=== PATIENT | female | born 1990 | race Caucasian/White ===

== ENCOUNTER 2019-03-04 05:35 | Inpatient (IN) ==
--- NOTE | 2019-02-27 07:59 | History and Physical Report ---
DATE OF ADMISSION: 03/04/2019 REASON FOR ADMISSION: Elective repeat section. HISTORY OF PRESENT ILLNESS: The patient is a 28-year-old female presenting at term for an elective repeat section. She had a prior in 2016 for a secondary arrest of dilation. She is not interested in a trial of labor after and is scheduled for an elective repeat section. PAST MEDICAL HISTORY: Positive for asthma. PAST SURGICAL HISTORY: Positive for laparoscopic appendectomy in 2001, breast augmentation and section. SOCIAL HISTORY: Denies smoking, alcohol or drug use. FAMILY HISTORY: Noncontributory. REVIEW OF SYSTEMS: Negative. PHYSICAL EXAMINATION: VITAL SIGNS: Blood pressure is 102/68. Weight is 190 pounds. Height is 5 feet 7 inches. HEENT: Within normal limits. LUNGS: Clear to auscultation. COR: Regular rate and rhythm. ABDOMEN: Soft and gravid. heart tone category 1. EXTREMITIES: Within normal limits. NEUROLOGIC: Intact. Group B strep is negative. ASSESSMENT: Term . PLAN: Elective repeat section.
[2019-03-04] MEDS ORDERED: LACTATED RINGER'S 1,000 ML IV SCH ×3 (05:45→09:00)
[2019-03-04] MEDS ORDERED: CEFAZOLIN 2000MG 2,000 MG/15 ML SYR IV SCH (06:00)
[2019-03-04] MEDS ORDERED: CITRIC ACID/SODIUM CITRATE 15 ML UDC PO SCH ×2 (06:00)
[2019-03-04 06:44] LABS: Hematocrit (blood only) 31.9 % (37-47); Hemoglobin 10.4 g/dL (12.0-16.0); Mean Corpuscular Hgb Conc 32.6 g/dL (32-36); Mean Corpuscular Volume 86.9 fL (80-100); Platelet Count 173 K/uL (130-400); RDW Coefficient of Variation 14.6 % (11.5-14.5); RDW Standard Deviation 45.5 fL (36.4-46.3); Red Blood Count 3.67 M/uL (4.2-5.4); White Blood Count 8.13 K/uL (4.8-10.8)
[2019-03-04 06:45] LABS: Basophils # (auto) 0.01 K/uL (0-0.2); Basophils % (auto) 0.1 %; Eosinophils # (auto) 0.09 K/uL (0-0.5); Eosinophils % (auto) 1.1 %; Immature Granulocytes # (auto) 0.03 K/uL (0.00-0.02); Immature Granulocytes % (auto) 0.4 %; Lymphocytes # (auto) 1.72 K/uL (1.2-3.4); Lymphocytes % (auto) 21.2 %; Monocytes # (auto) 0.77 K/uL (0.11-0.59); Monocytes % (auto) 9.5 %; Neutrophils # (auto) 5.51 K/uL (1.4-6.5); Neutrophils % (auto) 67.7 %; Platelet Estimate Normal (Normal); RBC Morphology Unremarkable
[2019-03-04] MEDS ORDERED: MoRPHine SULFATE PF 1 MG/ML 10 ML AMP/VIAL ONE (07:16)
--- NOTE | 2019-03-04 07:20 | History & Physical Bridge Note ---
Date of Service March 04, 2019 History & Physical Bridge Note I have examined the patient, reviewed the History & Physical and in the interval since the performance of the History & Physical I have noted the following changes of clinical significance: no changes noted
--- NOTE | 2019-03-04 07:21 | Anesthesiology Consultation ---
Date of Service March 04, 2019 Assessment & Plan (1) Encounter for pre-operative examination: Chart Review Chart Review: Acceptable Risk for Surgery History Surgery Operation Date: 03/04/19 07:30 Proposed Procedures p Section in LD - Renan Hernandez MD Height/Weight Height: 5 ft 7 in Weight: 83.461 kg Allergies Allergy/AdvReac Type Severity Reaction Status Date / Time No Known Allergies Allergy Verified 03/04/19 06:01 Medications Home Medications Medication Instructions Recorded Confirmed Last Taken PNV cmb#95-ferrous fumarate-FA 1 tab PO DAILY 02/19/19 02/19/19 02/19/19 [] NPO Date Last Intake of Fluids: 03/03/19 Time Last Intake of Fluids: 21:00 Date Last Intake of Solids: 03/03/19 Time Last Intake of Solids: 18:30 Past Medical History Medical History Chlamydia History of asthma CHILDHOOD History of delivery of macrosomal infant PRIOR C/SECTION D/T BABY 10 LBS Seasonal allergies Past Surgical History Surgical History History of breast augmentation History of section History of hernia surgery UNDER 1 YR OF AGE Social History Smoking Status: Never smoker Do You Dip or Chew Tobacco: No Hx Alcohol Use: No Hx Substance Use: No substance use type: does not use Physical Exam Vital Signs Last Vital Signs Temp 37 C 03/04/19 07:12 Pulse 77 03/04/19 07:12 Resp 20 03/04/19 07:12 BP 115/76 03/04/19 07:12 Testing Laboratory Results 03/04/19 05:50
[2019-03-04] MEDS ORDERED: NALBUPHINE HCL INJ 10 MG/ML AMP IV PRN (07:27)
[2019-03-04] MEDS ORDERED: ONDANSETRON INJ 2 MG/ML 2 ML VIAL IV PRN (07:27)
[2019-03-04] MEDS ORDERED: ePHEDrine sulfate 50 MG/ML AMP IV PRN (07:27)
[2019-03-04] MEDS ORDERED: KETOROLAC 30 MG/ML VIAL IV PRN (07:27)
[2019-03-04] MEDS ORDERED: NALOXONE HCL 0.08 MG in SYRINGE 1.8 ML IV PRN (07:27)
[2019-03-04] MEDS ORDERED: NALOXONE HCL 1 MG in SODIUM CHLORIDE 0.9% 1000ML 1,000 ML IV PRN (07:27)
[2019-03-04] MEDS ORDERED: LACTATED RINGER'S 500 ML IV PRN (07:27)
[2019-03-04] MEDS ORDERED: NALOXONE HCL 0.4 MG/1 ML VIAL/CARP IV PRN (07:27)
[2019-03-04] MEDS ORDERED: DiphenhydrAMINE HCL 50 MG/ML VIAL IV PRN (07:27)
[2019-03-04] MEDS ORDERED: MoRPHine SULFATE PF 1 MG/ML 10 ML AMP/VIAL INT SPINAL ONE (07:27)
[2019-03-04] MEDS ORDERED: PROMETHAZINE HCL 12.5 MG in SODIUM CHLORIDE 0.9% 50 ML IV PRN (07:27)
[2019-03-04] MEDS ORDERED: MEPERIDINE HCL 25 MG/ML CARP IV PRN (07:27)
[2019-03-04] MEDS ORDERED: DC INTRASPINAL MORPHINE SCH (07:30)
[2019-03-04] MEDS ORDERED: SODIUM CHLORIDE 0.9% 1000ML 1,000 ML IV SCH (07:30)
[2019-03-04] MEDS ORDERED: NO NARCOTICS OR SEDATIVES SCH (07:30)
[2019-03-04] MEDS ORDERED: ONDANSETRON INJ 2 MG/ML 2 ML VIAL ONE (08:10)
[2019-03-04] MEDS ORDERED: ePHEDrine sulfate 50 MG/ML SYR ONE (08:10)
[2019-03-04] MEDS ORDERED: METOCLOPRAMIDE HCL INJ 5 MG/ML 2 ML VIAL ONE (08:10)
[2019-03-04] MEDS ORDERED: SUCCINYLCHOLINE CHLORIDE 20 MG/ML 10 ML VIAL ONE (08:10)
[2019-03-04] MEDS ORDERED: PHENYLEPHRINE 100MCG/ML 5ML SYR ONE (08:10)
[2019-03-04] MEDS ORDERED: LIDOCAINE HCL 2% MPF (LOCAL) 5 ML VIAL INFIL ONE (08:10)
[2019-03-04] MEDS ORDERED: OXYTOCIN 10 UNITS/ML VIAL ONE ×3 (08:10→08:29)
[2019-03-04] MEDS ORDERED: PROPOFOL IV EMULSION 10 MG/ML 20 ML VIAL IV ONE (08:10)
--- NOTE | 2019-03-04 08:45 | Post Operative Brief Note ---
Immediate Post Op Note v1 Date of Surgery March 04, 2019 Pre & Post Diagnosis Operation Date: 03/04/19 07:30 Pre-Op Diagnosis: intraruterine at term elective repeat section Post-Op Diagnosis: section delivery for live female at 0805 Procedure Operation Date: 03/04/19 07:30 Actual Procedures p Section in Labor and Delivery for live female at 0805 - Renan Hernandez MD Surgeon Renan Hernandez MD Direct Entry Midwife Cece Estimated Blood Loss 700 Findings Consistent with Post-Op Diagnosis Live female Apgars 9/9 weight pending Fluids 3000 ml. Specimens Placenta Drains Leach Catheter (placed without difficulty for immediate return of clear yellow urine) Anesthesia Type Spinal Complications none Disposition Accompanied Patient To Recovery: Yes Disposition: L&D Overlapping Procedure I was immediately available: during the entire case. Back up surgeon: used during listed procedure.
[2019-03-04] MEDS ORDERED: MEASLES, MUMPS & RUBELLA VIRUS VIAL SQ ONE (08:52)
[2019-03-04] MEDS ORDERED: DIPHTHERIA/TETANUS/PERTUSSIS 0.5 ML SYR/VIAL IM ONE (08:52)
[2019-03-04] MEDS ORDERED: MAGNESIUM HYDROXIDE SUSP 30 ML UDC PO PRN (08:52)
[2019-03-04] MEDS ORDERED: SUPERCREAM 0.870% 15 GM JAR EXT PRN (08:52)
[2019-03-04] MEDS ORDERED: BENZOCAINE 20% AER SPR 82.5 GM CAN EXT PRN (08:52)
[2019-03-04] MEDS ORDERED: HYDROCORTISONE ACETATE 25 MG SUPP PR PRN (08:52)
[2019-03-04] MEDS ORDERED: SENNA 8.6 MG TAB PO PRN (08:52)
[2019-03-04] MEDS ORDERED: NON-FORMULARY MEDICATION (Pnv Cmb#95-Ferrous Fumarate-Fa [Prenatal] 1 TAB) PO SCH (10:54)
--- NOTE | 2019-03-04 13:36 | Operative Report ---
DATE OF OPERATION: 03/04/2019 PREOPERATIVE DIAGNOSIS: Term elective repeat section. POSTOPERATIVE DIAGNOSIS: Term elective repeat section. PROCEDURE: Repeat section, low segment transverse. SURGEON: Renan Hernandez MD. COSMETIC COUNSELOR: Bibiana Conti MD. ANESTHESIA: Spinal. FINDINGS: A live female, Apgars 9 and 9, weight 8 pounds 14 ounces. COMPLICATIONS: None. TOTAL FLUIDS: 3000 mL of LR. URINE OUTPUT: Pending. ESTIMATED BLOOD LOSS: 700 mL. CLINICAL HISTORY: The patient is a 28-year-old female, para 1-0-0-1, at 39 weeks and 3 days, admitted for an elective repeat section. The patient was given informed consent. Consents were signed. The patient was identified prior to the start of the procedure with a timeout and antibiotics were given preop. DESCRIPTION OF PROCEDURE: Under satisfactory spinal anesthesia, the patient was prepped and draped in usual sterile fashion. A low Pfannenstiel incision through a prior scar was then used, entering into the abdominal cavity in successive layers without difficulty. Upon entering into the abdominal cavity, uterus was noted to be dextrorotated, pickups with teeth and Metzenbaums were then used to develop a bladder flap. A low segment transverse incision over the lower uterine segment was made. The incision was nicked. Amniotic fluid was clear. The incision was widened in the AP diameter. The baby was delivered with the aid of fundal pressure through the scar with a vertex presentation. The cord was doubly clamped and cut after a 1 minute delayed cord clamping. Live female, Apgars 9 and 9, weight 8 pounds 14 ounces. Cord blood was obtained. Placenta was then delivered manually, spontaneously and intact. Uterus was then exteriorized. Ring forceps was then placed on both angles in the inferior margin and another ring was then used to dilate the cervix. Uterus was closed in a double layer closure with 0 Vicryl suture in a continuous interlocking fashion by a second imbricating layer of 0 Vicryl suture. Tubes and ovaries bilaterally were found to be within normal limits. The contents of the pelvic cavity were then irrigated to clear. The uterus was then placed back into the normal anatomical position. The initial sponge, needle and instrument count were found to be correct. The muscle was then reapproximated with 0 Vicryl suture. Fascia was then reapproximated from both ends using 0 Vicryl suture in a continuous fashion. Subcuticular space was irrigated. Bleeders were cauterized. Skin was then reapproximated with 4-0 Monocryl suture. Steri-Strips were then applied. Clear urine was noted from the Leach. Estimated blood loss 700 mL. Total fluids were 3000 mL. Final sponge, needle and instrument counts being correct, the patient was then placed upon a stretcher and taken to recovery room in stable condition. I attest to the content of the Intraoperative Record and any orders documented therein. Any exception s are noted below.
--- NOTE | 2019-03-04 15:34 | Anesthesiology Progress Note ---
Date of Service March 04, 2019 Anesthesia Post Procedure Vital Signs Vital Signs: Temp Pulse Resp BP Pulse Ox Pulse Ox 03/04/19 14:15 36.7 C 76 16 106/66 99 03/04/19 13:15 36.5 C 82 18 111/74 100 03/04/19 13:10 18 100 03/04/19 12:15 36.6 C 84 16 132/87 100 03/04/19 11:45 36.5 C 90 16 119/78 98 100 03/04/19 11:33 123/82 03/04/19 11:32 90 100 03/04/19 11:27 84 100 03/04/19 11:23 61 114/73 03/04/19 11:22 69 100 03/04/19 11:17 84 100 03/04/19 11:13 77 135/91 03/04/19 11:12 82 100 03/04/19 11:07 62 100 03/04/19 11:03 84 110/74 03/04/19 11:02 73 100 03/04/19 10:57 96 H 100 03/04/19 10:53 86 114/79 03/04/19 10:52 78 100 03/04/19 10:47 70 100 03/04/19 10:43 70 117/80 03/04/19 10:42 68 100 03/04/19 10:37 79 100 03/04/19 10:33 78 114/75 03/04/19 10:32 78 100 03/04/19 10:27 73 100 03/04/19 10:23 80 114/75 03/04/19 10:22 75 100 03/04/19 10:17 81 100 03/04/19 10:16 80 116/69 03/04/19 10:14 84 160/99 H 03/04/19 10:12 97 H 100 03/04/19 10:07 74 100 03/04/19 10:03 76 114/71 03/04/19 10:02 82 100 03/04/19 09:57 76 100 03/04/19 09:53 83 108/71 03/04/19 09:52 83 100 03/04/19 09:47 85 100 03/04/19 09:46 36.4 C L 20 03/04/19 09:43 77 129/70 03/04/19 09:42 79 100 07/23/19 09:37 82 99 03/04/19 09:36 20 03/04/19 09:33 88 115/73 03/04/19 09:32 87 100 03/04/19 09:27 82 99 03/04/19 09:26 20 03/04/19 09:23 82 120/75 03/04/19 09:22 83 98 03/04/19 09:18 87 94 03/04/19 09:17 90 94 03/04/19 09:16 20 03/04/19 09:12 85 96 03/04/19 09:11 88 109/71 91 03/04/19 09:07 70 99 03/04/19 09:06 86 20 108/76 03/04/19 09:02 78 100 03/04/19 09:01 84 110/75 03/04/19 08:57 85 99 03/04/19 08:56 36.5 C 20 03/04/19 08:52 89 98 03/04/19 08:47 87 107/62 96 03/04/19 08:46 36.4 C L 16 03/04/19 07:12 37 C 77 20 115/76 03/04/19 06:17 36.5 C 18 03/04/19 05:44 36.5 C 18 03/04/19 05:42 82 117/78 Pain Intensity Lower Abdomen: Pain Intensity: 0 Transfer of Care Handoff Completed per policy Notes Mental Status: alert / awake / arousable Patient Amnestic to Procedure: Yes Nausea / Vomiting: adequately controlled Pain: adequately controlled Airway Patency, RR, SpO2: stable & adequate BP & HR: stable & adequate Hydration State: stable & adequate Neuraxial Anesthesia: was administered and sensory block is resolving Anesthetic Complications: no major complications apparent
[2019-03-04] MEDS: LACTATED RINGER'S 1,000 ML IV SCH ×2 (15:57→23:19)
[2019-03-04] MEDS: SIMETHICONE 80 MG CHEW PO SCH ×2 (20:25→20:26)
[2019-03-04] MEDS: DOCUSATE SODIUM 100 MG CAP PO SCH (20:26)
[2019-03-05] MEDS ORDERED: DiphenhydrAMINE HCL 50 MG/ML VIAL IV PRN (01:28)
[2019-03-05] MEDS ORDERED: ONDANSETRON INJ 2 MG/ML 2 ML VIAL IV PRN (01:28)
[2019-03-05] MEDS ORDERED: MEPERIDINE HCL 50 MG/ML CARP IV PRN (01:28)
[2019-03-05] MEDS ORDERED: PROMETHAZINE HCL 25 MG in SODIUM CHLORIDE 0.9% 50 ML IV PRN (01:28)
[2019-03-05] MEDS ORDERED: KETOROLAC 30 MG/ML VIAL IV PRN (01:28)
[2019-03-05 06:42] LABS: Mean Corpuscular Hgb Conc 32.9 g/dL (32-36)
[2019-03-05 06:50] LABS: Hematocrit (blood only) 30.7 % (37-47); Hemoglobin 10.1 g/dL (12.0-16.0); Mean Corpuscular Volume 87.5 fL (80-100); RDW Coefficient of Variation 14.8 % (11.5-14.5); RDW Standard Deviation 46.9 fL (36.4-46.3); Red Blood Count 3.51 M/uL (4.2-5.4); White Blood Count 10.53 K/uL (4.8-10.8)
[2019-03-05 07:12] LABS: Platelet Count 152 K/uL (130-400)
[2019-03-05 07:13] LABS: Basophils # (auto) 0.01 K/uL (0-0.2); Basophils % (auto) 0.1 %; Eosinophils # (auto) 0.03 K/uL (0-0.5); Eosinophils % (auto) 0.3 %; Immature Granulocytes # (auto) 0.03 K/uL (0.00-0.02); Immature Granulocytes % (auto) 0.3 %; Lymphocytes # (auto) 0.93 K/uL (1.2-3.4); Monocytes # (auto) 0.95 K/uL (0.11-0.59); Monocytes % (auto) 9.2 %; Neutrophils # (auto) 8.36 K/uL (1.4-6.5); Neutrophils % (auto) 81.1 %
[2019-03-05] MEDS: FERROUS SULFATE 325 MG TAB PO SCH (08:08)
[2019-03-05] MEDS: PRENATAL VITAMIN 1 TAB PO SCH (08:08)
[2019-03-05] MEDS: SIMETHICONE 80 MG CHEW PO SCH ×5 (08:08→19:34)
[2019-03-05] MEDS: DOCUSATE SODIUM 100 MG CAP PO SCH ×2 (08:08→19:34)
--- NOTE | 2019-03-05 09:36 | Anesthesiology Progress Note ---
Date of Service March 05, 2019 Anesthesia Post Procedure Vital Signs Vital Signs: Temp Pulse Pulse Resp BP BP Pulse Ox 03/05/19 09:00 36.8 C 84 16 114/76 100 03/05/19 03:16 36.7 C 64 18 102/65 100 03/05/19 01:00 16 99 03/05/19 00:00 16 100 03/04/19 23:22 36.9 C 70 18 105/68 100 03/04/19 23:00 18 100 03/04/19 22:28 18 98 03/04/19 21:00 18 99 03/04/19 20:00 37.0 C 84 20 105/70 100 03/04/19 19:00 18 99 03/04/19 17:59 18 100 03/04/19 16:40 20 100 03/04/19 15:40 37.0 C 70 20 109/72 99 03/04/19 14:15 36.7 C 76 16 106/66 99 03/04/19 13:15 36.5 C 82 18 111/74 100 03/04/19 13:10 18 100 03/04/19 12:15 36.6 C 84 16 132/87 100 03/04/19 11:45 36.5 C 90 16 119/78 98 03/04/19 11:33 123/82 03/04/19 11:32 90 100 03/04/19 11:27 84 100 03/04/19 11:23 61 114/73 03/04/19 11:22 69 100 03/04/19 11:17 84 100 03/04/19 11:13 77 135/91 03/04/19 11:12 82 100 03/04/19 11:07 62 100 03/04/19 11:03 84 110/74 03/04/19 11:02 73 100 03/04/19 10:57 96 H 100 03/04/19 10:53 86 114/79 03/04/19 10:52 78 100 03/04/19 10:47 70 100 03/04/19 10:43 70 117/80 03/04/19 10:42 68 100 03/04/19 10:37 79 100 03/04/19 10:33 78 114/75 03/04/19 10:32 78 100 03/04/19 10:27 73 100 03/04/19 10:23 80 114/75 03/04/19 10:22 75 100 03/04/19 10:17 81 100 03/04/19 10:16 80 116/69 03/04/19 10:14 84 160/99 H 03/04/19 10:12 97 H 100 03/04/19 10:07 74 100 03/04/19 10:03 76 114/71 03/04/19 10:02 82 100 03/04/19 09:57 76 100 03/04/19 09:53 83 108/71 03/04/19 09:52 83 100 03/04/19 09:47 85 100 03/04/19 09:46 36.4 C L 20 03/04/19 09:43 77 129/70 03/04/19 09:42 79 100 03/04/19 09:37 82 99 Pulse Ox 03/05/19 09:00 03/05/19 03:16 03/05/19 01:00 03/05/19 00:00 03/04/19 23:22 03/04/19 23:00 03/04/19 22:28 03/04/19 21:00 03/04/19 20:00 03/04/19 19:00 03/04/19 17:59 03/04/19 16:40 03/04/19 15:40 03/04/19 14:15 03/04/19 13:15 03/04/19 13:10 03/04/19 12:15 03/04/19 11:45 100 03/04/19 11:33 03/04/19 11:32 03/04/19 11:27 03/04/19 11:23 03/04/19 11:22 03/04/19 11:17 03/04/19 11:13 03/04/19 11:12 03/04/19 11:07 03/04/19 11:03 03/04/19 11:02 03/04/19 10:57 03/04/19 10:53 03/04/19 10:52 03/04/19 10:47 03/04/19 10:43 03/04/19 10:42 03/04/19 10:37 03/04/19 10:33 03/04/19 10:32 03/04/19 10:27 03/04/19 10:23 03/04/19 10:22 03/04/19 10:17 03/04/19 10:16 03/04/19 10:14 03/04/19 10:12 03/04/19 10:07 03/04/19 10:03 03/04/19 10:02 03/04/19 09:57 03/04/19 09:53 03/04/19 09:52 03/04/19 09:47 03/04/19 09:46 03/04/19 09:43 03/04/19 09:42 03/04/19 09:37 Pain Intensity Lower Abdomen: Pain Intensity: 1 Transfer of Care Handoff Completed per policy Notes Mental Status: alert / awake / arousable Patient Amnestic to Procedure: Yes Nausea / Vomiting: adequately controlled Pain: adequately controlled Airway Patency, RR, SpO2: stable & adequate BP & HR: stable & adequate Hydration State: stable & adequate Neuraxial Anesthesia: was administered and sensory block is resolving Anesthetic Complications: no major complications apparent and Pt Satisfied with anesthetic care
--- NOTE | 2019-03-05 09:37 | Obstetrical Progress Note ---
Date of Service March 05, 2019 Physical Exam Physical Exam: abdomen soft nd non tender incision is clean and dry passing flatus no calf tenderness vaginal bleeding scant hgb 10.1 ambulating well Results & Data Vital Signs (Past 12 Hours) Vital Signs Temp Pulse Resp BP Pulse Ox 03/05/19 09:00 36.8 C 84 16 114/76 100 03/05/19 03:16 36.7 C 64 18 102/65 100 03/05/19 01:00 16 99 03/05/19 00:00 16 100 03/04/19 23:22 36.9 C 70 18 105/68 100 03/04/19 23:00 18 100 03/04/19 22:28 18 98
[2019-03-05] MEDS: IBUPROFEN 600 MG TAB PO PRN (12:47)
[2019-03-05] MEDS: OXYCODONE/ACETAMINOPHEN 5mg/325mg TAB PO PRN (12:48)
[2019-03-05] MEDS ORDERED: BISACODYL 5 MG TABEC PO SCH (20:00)
[2019-03-06] MEDS: OXYCODONE/ACETAMINOPHEN 5mg/325mg TAB PO PRN (02:29)
[2019-03-06] MEDS: IBUPROFEN 600 MG TAB PO PRN (02:29)
[2019-03-06 06:40] LABS: Hematocrit (blood only) 30.3 % (37-47); Hemoglobin 9.8 g/dL (12.0-16.0)
[2019-03-06] MEDS: SIMETHICONE 80 MG CHEW PO SCH (08:00)
[2019-03-06] MEDS: FERROUS SULFATE 325 MG TAB PO SCH (08:00)
[2019-03-06] MEDS: PRENATAL VITAMIN 1 TAB PO SCH (08:00)
[2019-03-06] MEDS: DOCUSATE SODIUM 100 MG CAP PO SCH (08:00)
[2019-03-06] MEDS ORDERED: BISACODYL 10 MG SUPP PR PRN (08:52)
--- NOTE | 2019-03-06 10:20 | Obstetrical Progress Note ---
Date of Service March 06, 2019 Subjective Patient is seen and examined. She feels well, no complaints. Likes to be discharged Pain is under control with oral meds. Ambulating without dizziness Voiding without difficulty Tolerating regular diet with out N&V Flatus + BM + Bleeding is minimal No fever/ chills/ CP/ SOB/ N&V/ Leg pain Breast feeding without problems Vital Signs Temp Pulse Pulse Resp BP Pulse Ox 03/06/19 08:05 36.5 C 78 14 112/78 100 03/05/19 23:00 36.9 C 77 16 108/72 99 03/06/19 Range/Units 06:19 Hgb 9.8 L (12.0-16.0) g/dL Hct 30.3 L (37-47) % PE: General: Alert, orientedx3, NAD CVS: S1S2 RRR Lungs; CTAB Abd: soft, NT, ND, BS+, fundus firm, below Umbilicus Incision: Clean, dry, intact Perineum intact, Lochia rubra minimal Ext; NT, no edema AP: 28 yo s/p C Section, pod# 2 VSS Afebrile doing well Continue routine postop care Encourage ambulation, PO intake All questions were answered D/C home , f/u in office Results & Data Vital Signs (Past 12 Hours) Vital Signs Temp Pulse Pulse Resp BP Pulse Ox 03/06/19 08:05 36.5 C 78 14 112/78 100 03/05/19 23:00 36.9 C 77 16 108/72 99
--- NOTE | 2019-03-13 19:09 | Discharge Summary ---
HOSPITAL COURSE AND REASON FOR ADMISSION: The patient is an admission for a in labor and delivery as an elective repeat. She underwent a repeat with spinal anesthesia delivering a live female, Apgars were 9 and 9. Homegoing instructions were given. Hospital course was unremarkable. The patient was discharged to home 03/06/2019 in stable condition. Regular diet on discharge. Percocet for pain and Motrin for pain. Followup in the office will be in 1 week.
== END 2019-03-06 11:50 | disposition home or self-care (01) | DRG 788 ==
LOC: 4S1 05:35 → EDSTATUS 07:30 → MERGE 07:30 → 4S2 12:26

== ENCOUNTER 2020-06-04 06:24 | Inpatient (IN) ==
[2020-06-04] MEDS ORDERED: INFLUENZA VIRUS QUAD VACCINE 0.5 ML SYR IM ONE (08:47)
[2020-06-04] MEDS ORDERED: INFLUENZA ADMINISTRATION CHARGE ONE (08:47)
[2020-06-04] MEDS ORDERED: OXYTOCIN 30 UNITS/500 ML BAG IV PRN ×2 (09:15→18:43)
[2020-06-04] MEDS ORDERED: BUTORPHANOL TARTRATE 1 MG/ML VIAL IV PRN (09:15)
[2020-06-04] MEDS ORDERED: ONDANSETRON INJ 2 MG/ML 2 ML VIAL IV PRN (09:15)
[2020-06-04] MEDS ORDERED: ACETAMINOPHEN 500 MG TAB PO PRN (09:15)
[2020-06-04] MEDS: LACTATED RINGER'S 1,000 ML IV PRN ×2 (09:43→17:27)
[2020-06-04] MEDS: miSOPROStoL 200 MCG TAB PO SCH ×3 (09:52→18:56)
[2020-06-04 10:08] LABS: Partial Thromboplastin Ratio 1.1; Partial Thromboplastin Time 29.3 Seconds (21.0-31.0); Prothrombin Time 10.7 Seconds (9.0-12.0)
[2020-06-04 10:10] LABS: Hematocrit (blood only) 37.2 % (37-47); Hemoglobin 12.6 g/dL (12.0-16.0); Mean Corpuscular Hemoglobin 29.3 pg (25-34); Mean Corpuscular Hgb Conc 33.9 g/dL (32-36); Mean Corpuscular Volume 86.5 fL (80-100); Mean Platelet Volume 11.3 fL (7.4-10.4); Platelet Count 242 K/uL (130-400); RDW Coefficient of Variation 13.5 % (11.5-14.5); RDW Standard Deviation 42.7 fL (36.4-46.3); White Blood Count 7.81 K/uL (4.8-10.8)
--- NOTE | 2020-06-04 10:16 | Obstetrical Progress Note ---
Date of Service June 04, 2020 Assessment & Plan Admission and Anticipated Discharge Date Admission Date: June 04, 2020 Subjective pt here for induction of labor for demise at 15 weeks pt is a prior c/sec x2 we have discussed risk of uterine rapture with cytotec because of her prior c/sec surgery for D&E with its associated risk is also discussed as well pt has agreed to proceed Results & Data ([facility]) Vital Signs (Past 12 Hours) Vital Signs Temp Pulse Resp BP 06/04/20 07:58 36.8 C 73 18 114/72 06/04/20 07:54 73 114/72
[2020-06-04] MEDS ORDERED: miSOPROStoL 200 MCG TAB PO SCH (12:00)
[2020-06-04] MEDS ORDERED: IBUPROFEN 600 MG TAB PO PRN (18:43)
[2020-06-04] MEDS ORDERED: DIPHTHERIA/TETANUS/PERTUSSIS 0.5 ML SYR/VIAL IM ONE (18:43)
[2020-06-04] MEDS ORDERED: HYDROCORTISONE ACETATE 25 MG SUPP PR PRN (18:43)
[2020-06-04] MEDS ORDERED: BENZOCAINE 20% AER SPR 82.5 GM CAN EXT PRN (18:43)
[2020-06-04] MEDS ORDERED: ACETAMINOPHEN 325 MG TAB PO PRN (18:43)
[2020-06-04] MEDS ORDERED: SUPERCREAM 0.870% 15 GM JAR EXT PRN (18:43)
[2020-06-04] MEDS ORDERED: bisacodyL 10 MG SUPP PR PRN (18:43)
[2020-06-04] MEDS ORDERED: DOCUSATE SODIUM 100 MG CAP PO SCH (21:00)
--- NOTE | 2020-06-04 21:07 | Delivery Summary ---
DATE OF OPERATION: 06/04/2020 This is a 30-year-old G3, P2 at 15 weeks with demise. She was here this morning for induction. The patient received 2 doses of Cytotec and spontaneously delivered a nonviable . Placenta was spontaneously delivered as well. The patient is presently stable. She has been observed for a few hours and will hopefully be discharged home. I attest to the content of the Intraoperative Record and any orders documented therein. Any exception s are noted below.
[2020-06-05 06:48] LABS: Hematocrit (blood only) 34.4 % (37-47); Hemoglobin 11.7 g/dL (12.0-16.0); Mean Corpuscular Hemoglobin 29.6 pg (25-34); Mean Corpuscular Volume 87.1 fL (80-100); Mean Platelet Volume 11.7 fL (7.4-10.4); Platelet Count 237 K/uL (130-400); RDW Coefficient of Variation 13.4 % (11.5-14.5); RDW Standard Deviation 43.2 fL (36.4-46.3); Red Blood Count 3.95 M/uL (4.2-5.4)
[2020-06-05] MEDS ORDERED: PRENATAL VITAMIN 1 TAB PO SCH (08:00)
[2020-06-05] MEDS ORDERED: bisacodyL 5 MG TABEC PO SCH (20:00)
[2020-06-08 21:11] LABS: CMV IgG Antibody <0.60 U/mL; Herpes Simplex Ab IgG-2 <0.90 index; Rubella IgG 1.18 INDEX; Toxoplasma gondii IgG Ab, EIA <7.20 IU/mL
[2020-06-09 09:45] LABS: Toxoplasma gondii IgM Ab, EIA <8.00 AU/mL
== END 2020-06-05 08:15 | disposition home or self-care (01) | DRG 779 ==
LOC: 4S1 07:40

== ENCOUNTER 2021-08-29 16:31 | Inpatient (IN) ==
[2021-08-29] MEDS ORDERED: LACTATED RINGER'S 1,000 ML IV PRN (17:22)
[2021-08-29] MEDS ORDERED: D5W AND LACTATED RINGERS 1,000 ML IV SCH (17:30)
--- NOTE | 2021-08-29 19:43 | History & Physical Report ---
Date of Service August 29, 2021 Assessment & Plan (1) Dichorionic diamniotic twin in third trimester: Plan: 31-year-old -0-1-2 at 38 weeks and 2 days of gestation with di-Di twins, history of prior 2 C-sections, scheduled for repeat on August 31, presenting from office with nonreactive NST and BPP of 6 out of 10 for baby B, Vital signs stable afebrile, heart rate reassuring here, baby B has been reactive since admission and baby A became reactive after IV fluid was given heart rate are reassuring now, No signs of symptoms of labor, Patient COVID-19 result came back positive tonight, patient has been asymptomatic, denies any symptoms of COVID. We discussed delivery of infants either tonight or tomorrow morning or keep appointment for Sunday morning on . Patient and her desires this done sooner than later. After Discussion with anesthesia, nursing team, we were unable to offer her C- section for tonight, but we offered her to stay overnight for monitoring and preparation for her case and perform in the morning at 730 in [facility] OR room. Patient and are satisfied and they prefer tomorrow morning, All questions were answered. (2) History of section complicating : (3) Non-reactive NST (non-stress test): History of Present Illness Chief Complaint: Nonreactive NST and borderline BPP of 6 out of 10 for baby B. Primary Care Provider: NO PCP History of gestation who is an 31-year-old -0-1-2 at 38 weeks and 2 days of gestation with Di Di twins, has a history of prior 2 C-sections, was scheduled for repeat with tubal ligation on August 31. She was in the office today for NST and baby B's NST was not reactive. She was then sent for an ultrasound for BPPs. Baby A got 8 out of 8 (10/10) and baby B got 6 out of 8 (6/10). She was sent to labor and delivery for further monitoring. I performed a bedside ultrasound upon presentation, baby A is on the left side, breech, Baby B is on the right side and breech as well Both had multiple movements and normal RIKA. Baby B's NST was reactive at admission but baby A is NST took more time to become reactive. She stated that she has not been eating or drinking well today. Restarting IV fluids and both babies become reactive. Patient denies contractions, leakage of fluid, vaginal bleeding. And she reports good movements for both babies. Her has been complicated by above and history of 15-week loss, antepartum anemia, maternal Red cell immunization, anti-JK antibody present, monitor titers have been stable, history of macrosomia, history of choroid plexus cyst of baby B, declined genetic testing. Allergies Allergy/AdvReac Type Severity Reaction Status Date / Time No Known Allergies Allergy Verified 08/26/21 08:53 Home Medications Medication Instructions Recorded Confirmed Type vit no.95-ferrous 1 tab PO DAILY 02/19/19 08/29/21 History fumarate 28 mg-folic acid 800 mcg tablet () Patient History Medical History Anemia DURING THIS History of asthma A CHILD/NO INHALER History of COVID-29 OCTOBER 2020 (NO CURRENT PROBLEMS) History of delivery of macrosomal infant Seasonal allergies Surgical History History of breast augmentation History of section X 2 History of hernia surgery A CHILD [place] teeth removed Family History Other No family history of adverse response to anesthesia Social History Smoking Status: Never smoker Second Hand Exposure: No; Hx Alcohol Use: No Hx Substance Use: No Preferred Language: Swedish Communication Ability: Effective Children'S Service Worker Required: No Beliefs That Will Affect Care: None marital status: Current Living Situation: Spouse Current Living Situation Comment: lives with spouse and kids Other Information That Helps Us Care for You: No Feels Safe at Home: Yes Safety Concerns: Feels Safe At This Time Assistive Devices: None OB History 2015 full-term, primary for macrosomia weight was 4365 g, 2019 delivered at 39 weeks and 3 days with repeat , weight was 402 6 g, 2020 15 weeks and 4-day demise, And current Review of Systems as per Subjective / HPI Physical Exam Constitutional: WD/WN, vitals as above well developed and well nourished Comfortable not in acute distress Genitourinary: OB Exam Monitor Tracing: + external uterine monitor used (No contractions) and + category I (For both babies) Results & Data ([facility]) Vital Signs (Past 12 Hours) Vital Signs Temp Pulse Resp BP 08/29/21 19:11 36.6 C 18 08/29/21 19:09 91 H 116/79 08/29/21 18:20 36.9 C 20 08/29/21 16:51 103 H 115/83 08/29/21 16:44 36.9 C 20
[2021-08-29] MEDS ORDERED: ceFAZolin 2000MG 2,000 MG/15 ML SYR IV STA (20:51)
[2021-08-29] MEDS ORDERED: CITRIC ACID/SODIUM CITRATE 15 ML UDC PO STA (20:51)
[2021-08-29] MEDS ORDERED: LACTATED RINGER'S 1,000 ML IV SCH ×2 (21:00→22:00)
[2021-08-29 21:16] LABS: Hematocrit (blood only) 32.5 % (37-47); Hemoglobin 10.7 g/dL (12.0-16.0); Mean Corpuscular Hemoglobin 29.2 pg (25-34); Mean Corpuscular Volume 88.6 fL (80-100); Mean Platelet Volume 11.3 fL (7.4-10.4); Platelet Count 192 K/uL (130-400); RDW Coefficient of Variation 13.4 % (11.5-14.5); RDW Standard Deviation 43.8 fL (36.4-46.3); Red Blood Count 3.67 M/uL (4.2-5.4); White Blood Count 7.38 K/uL (4.8-10.8)
[2021-08-29 21:17] LABS: Basophils # (auto) 0.01 K/uL (0-0.2); Basophils % (auto) 0.1 %; Eosinophils # (auto) 0.03 K/uL (0-0.5); Eosinophils % (auto) 0.4 %; Immature Granulocytes # (auto) 0.02 K/uL (0.00-0.02); Immature Granulocytes % (auto) 0.3 %; Lymphocytes % (auto) 13.6 %; Monocytes # (auto) 0.77 K/uL (0.11-0.59); Monocytes % (auto) 10.4 %; Neutrophils # (auto) 5.55 K/uL (1.4-6.5); Neutrophils % (auto) 75.2 %; Platelet Estimate Normal (Normal)
--- NOTE | 2021-08-29 23:05 | Anesthesiology Consultation ---
Date of Service August 29, 2021 Assessment & Plan (1) Encounter for pre-operative examination: Chart Review Chart Review: Acceptable Risk for Surgery and Patient NOT seen in Pre Admission Testing Consults Requested none History Height/Weight Height: 5 ft 7 in Weight: 87.997 kg Allergies Allergy/AdvReac Type Severity Reaction Status Date / Time No Known Allergies Allergy Verified 08/26/21 08:53 Medications Home Medications Medication Instructions Recorded Confirmed Last Taken vit no.95-ferrous 1 tab PO DAILY 02/19/19 08/29/21 08/26/21 07:30 fumarate 28 mg-folic acid 800 mcg tablet () Active Medications Generic Name Dose Route Start Last Admin Trade Name Freq PRN Reason Stop Dose Admin Dextrose/Lactated Ringer's 1,000 mls @ 250 mls/hr 08/29/21 17:30 08/29/21 18:01 D5w And Lactated Ringers IV 09/28/21 17:29 250 mls/hr .Q4H LILI Administration Lactated Ringer's 1,000 mls @ 250 mls/hr 08/29/21 17:22 08/29/21 18:13 Lr IV 09/28/21 17:21 250 mls/hr .Q4H PRN Administration L&D Protocol Protocol Past Medical History Medical History Anemia DURING THIS History of asthma A CHILD/NO INHALER History of COVID-29 OCTOBER 2020 (NO CURRENT PROBLEMS) History of delivery of macrosomal Seasonal allergies Past Family History Family History Other No family history of adverse response to anesthesia Past Surgical History Surgical History History of breast augmentation History of section X 2 History of hernia surgery A CHILD [place] teeth removed Social History Smoking Status: Never smoker Hx Alcohol Use: No Hx Substance Use: No substance use type: does not use Physical Exam Vital Signs Last Vital Signs Temp 97.9 F 08/29/21 19:11 Pulse 91 H 08/29/21 19:09 Resp 18 08/29/21 19:11 BP 116/79 08/29/21 19:09 Testing Laboratory Results 08/29/21 20:22 Blood Type O Positive 08/29/21 20:22 Antibody Screen POSITIVE A 08/29/21 20:22 + COVID
[2021-08-30] MEDS ORDERED: CITRIC ACID/SODIUM CITRATE 15 ML UDC PO SCH (06:00)
[2021-08-30] MEDS ORDERED: ceFAZolin 2000MG 2,000 MG/15 ML SYR IV SCH (06:00)
--- NOTE | 2021-08-30 07:16 | History & Physical Bridge Note ---
Date of Service August 30, 2021 History & Physical Bridge Note I have examined the patient, reviewed the History & Physical and in the interval since the performance of the History & Physical I have noted the following changes of clinical significance: no changes noted
[2021-08-30] MEDS ORDERED: METHYLERGONOVINE MALEATE 0.2 MG/ML AMP ONE (07:23)
[2021-08-30] MEDS ORDERED: OXYTOCIN 10 UNITS/ML 10ML VIAL ONE (07:23)
[2021-08-30] MEDS ORDERED: SUCCINYLCHOLINE 100MG/5ML SYR IV ONE (07:23)
[2021-08-30] MEDS ORDERED: CARBOPROST TROMETHAMINE 250 MCG/ML AMPUL ONE (07:24)
[2021-08-30] MEDS ORDERED: LACTATED RINGER'S 1,000 ML IV SCH ×2 (07:30→13:52)
[2021-08-30] MEDS ORDERED: ONDANSETRON INJ 2 MG/ML 2 ML VIAL ONE (07:48)
[2021-08-30] MEDS ORDERED: KETOROLAC 30 MG/ML VIAL ONE ×2 (07:48→10:55)
[2021-08-30] MEDS ORDERED: MoRPHine SULFATE PF 1 MG/ML 10 ML AMP/VIAL ONE (07:48)
[2021-08-30] MEDS ORDERED: fentaNYL citrate 100 MCG/2 ML VIAL ONE (07:49)
--- NOTE | 2021-08-30 10:49 | Post Operative Brief Note ---
Immediate Post Op Note v1 Date of Surgery August 30, 2021 Pre & Post Diagnosis Operation Date: 08/30/21 07:45 Pre-Op Diagnosis: Twin Gestation; Breech Presentation. Previous Sections x 2. Post-Op Diagnosis: Twin Gestation; Breech Presentation. Previous Sections x 2. I identified the patient and participated in the time-out.: Yes Procedure Operation Date: 08/30/21 07:45 Actual Procedures p Section in LD OR #1; Live Male A at 0940; Live Male Infant B at 0942 - Renan Hernandez MD Surgeon Renan Hernandez MD Competency Evaluated Nurse Aide Dr. Glover Estimated Blood Loss 600 Findings Consistent with Post-Op Diagnosis Twin A male yumiko breech Apgars 9/9 Twin B male yumiko breech Apgars 8/8 nuchal cord x1 Fluids LR Specimens Placenta with cord twin A with cord clamp Drains Leach Catheter Anesthesia Type Spinal Complications none Disposition Accompanied Patient To Recovery: Yes Overlapping Procedure I was present for: the critical portions of procedure. I was immediately available: during the entire case. Back up surgeon: used during listed procedure.
[2021-08-30] MEDS ORDERED: ePHEDrine sulfate 50 MG/ML AMP IV PRN (10:59)
[2021-08-30] MEDS ORDERED: ONDANSETRON INJ 2 MG/ML 2 ML VIAL IV PRN (10:59)
[2021-08-30] MEDS ORDERED: NALBUPHINE HCL INJ 10 MG/ML AMP IV PRN (10:59)
[2021-08-30] MEDS ORDERED: LACTATED RINGER'S 500 ML IV PRN (10:59)
[2021-08-30] MEDS ORDERED: NALOXONE HCL 0.08 MG in SYRINGE 1.8 ML IV PRN (10:59)
[2021-08-30] MEDS ORDERED: MEPERIDINE HCL 25 MG/ML CARP/VIAL IV PRN (10:59)
[2021-08-30] MEDS ORDERED: NALOXONE HCL 1 MG in SODIUM CHLORIDE 0.9% 1000ML 1,000 ML IV PRN (10:59)
[2021-08-30] MEDS ORDERED: NALOXONE HCL 0.4 MG/1 ML VIAL/CARP IV PRN (10:59)
[2021-08-30] MEDS ORDERED: KETOROLAC 30 MG/ML VIAL IV PRN (10:59)
[2021-08-30] MEDS ORDERED: diphenhydrAMINE 50 MG/ML VIAL IV PRN (10:59)
[2021-08-30] MEDS ORDERED: MoRPHine SULFATE PF 1 MG/ML 10 ML AMP/VIAL INT SPINAL ONE (10:59)
[2021-08-30] MEDS ORDERED: DC INTRASPINAL MORPHINE SCH (11:00)
[2021-08-30] MEDS ORDERED: NO NARCOTICS OR SEDATIVES SCH (11:00)
[2021-08-30] MEDS ORDERED: SODIUM CHLORIDE 0.9% 1000ML 1,000 ML IV SCH (11:00)
--- NOTE | 2021-08-30 11:40 | Anesthesiology Progress Note ---
Date of Service August 30, 2021 Anesthesia Post Procedure Vital Signs Vital Signs: Temp Pulse Resp BP Pulse Ox 08/30/21 11:27 61 20 99/64 L 93 08/30/21 11:17 96 H 18 96/59 L 96 08/30/21 11:07 64 18 94/61 L 95 08/30/21 10:57 61 18 102/66 96 08/30/21 10:47 65 18 94/58 L 100 08/30/21 10:37 97.5 F L 77 18 105/71 08/30/21 07:52 98.2 F 20 08/30/21 07:12 85 114/86 08/30/21 04:39 88 123/71 08/30/21 04:38 97.5 F L 18 08/30/21 00:10 85 114/76 08/29/21 19:11 97.9 F 18 08/29/21 19:09 91 H 116/79 08/29/21 18:20 98.4 F 20 08/29/21 16:51 103 H 115/83 08/29/21 16:44 98.4 F 20 Transfer of Care Handoff Completed per policy Notes Mental Status: alert / awake / arousable and participated in evaluation Nausea / Vomiting: adequately controlled Pain: adequately controlled Airway Patency, RR, SpO2: stable & adequate BP & HR: stable & adequate Hydration State: stable & adequate Neuraxial Anesthesia: was administered and sensory block is resolving Anesthetic Complications: no major complications apparent and Pt Satisfied with anesthetic care
[2021-08-30] MEDS: OXYTOCIN 20 UNITS in LACTATED RINGER'S 1,000 ML IV SCH ×2 (12:11→22:34)
[2021-08-30] MEDS ORDERED: HYDROCORTISONE ACETATE 25 MG SUPP PR PRN (13:52)
[2021-08-30] MEDS ORDERED: SENNA 8.6 MG TAB PO PRN (13:52)
[2021-08-30] MEDS ORDERED: DIPHTHERIA/TETANUS/PERTUSSIS 0.5 ML SYR/VIAL IM ONE (13:52)
[2021-08-30] MEDS ORDERED: SUPERCREAM 0.870% 15 GM JAR EXT PRN (13:52)
[2021-08-30] MEDS ORDERED: BENZOCAINE 20% AER SPR 82.5 GM CAN EXT PRN (13:52)
[2021-08-30] MEDS ORDERED: MAGNESIUM HYDROXIDE SUSP 30 ML UDC PO PRN (13:52)
[2021-08-30] MEDS ORDERED: LACTATED RINGER'S 1,000 ML IV ONE (14:54)
[2021-08-30] MEDS: SIMETHICONE 80 MG CHEW PO SCH (20:27)
[2021-08-30] MEDS: DOCUSATE SODIUM 100 MG CAP PO SCH (20:27)
--- NOTE | 2021-08-30 22:06 | Operative Report (OR) ---
DATE OF SURGERY: 08/30/2021 PREOPERATIVE DIAGNOSES: Term twin gestation at 38 weeks, elective repeat section. POSTOPERATIVE DIAGNOSES: Term twin gestation at 38 weeks, elective repeat section. PROCEDURE: Repeat section, low segment transverse. SURGEON: Renan Hernandez MD. DIRECTOR OF HOTEL: Abhay Glover MD. ANESTHESIA: Spinal. COMPLICATIONS: None. FINDINGS: Twin A, live male, Apgars 9 and 9, yumiko breech. Twin B, live male, Apgars 8 and 8, yumiko breech with nuchal cord x1. Leach clear. ESTIMATED BLOOD LOSS: 600 mL. CLINICAL HISTORY: The patient is a 31-year-old female, para 2-0-1-2, at 38 weeks and 3 days, admitte d for a repeat section. The patient was given informed consent. Timeout was called prior t o the start of the procedure and antibiotics were given preop. DESCRIPTION OF PROCEDURE: Under satisfactory spinal anesthesia, the patient was prepped and draped i n the usual sterile fashion. A low Pfannenstiel incision was then made entering through a prior scar into the abdominal cavity in successive layers without difficulty. Upon entering into the peritonea l cavity, Metzenbaums and sharp dissection were used to create a bladder flap. High entry into the uterus, a low segment transverse incision was made. The incision was widened in the AP diameter. Th e amniotic sac for baby A was ruptured and baby A delivered a viable male infant. The cord was clampe d and a 1 minute cord delay was accomplished. Apgars were 9 and 9 and after the cord was cut, baby w as handed to the assistant hairstylist, yumiko marroquin. Samara clamp was used on cord A. Next sac was identified and ruptured. Clear fluid also, delivering a live male. Apgars were 8 and 8, yumiko breech, nuchal cord x1 reduced at time of delivery and there was a delayed cord clamping for 1 minute as well. This baby had a Latasha clamp on the cord. Cord blood was obtained first from baby A and then from baby B , and the cord was identified with an umbilical clamp for cord A and was submitted to pathology for emelina romero. The uterus was then exteriorized. Ring forceps were used to grab both angles in the inferior margin and another ring used to dilate the cervix. Tubes and ovaries bilaterally were found to be within no rmal limits. Uterus was closed in a double layer closure with 0 Vicryl suture in a continuous interl ocking fashion followed by a second layer of 0 Vicryl suture for imbricating. No active bleeding was noted. The tubes and ovaries bilaterally were found to be normal. Contents of the pelvic and abdom inal cavity were then irrigated to clear. The initial sponge, needle, and instrument count found to be correct. The uterus was then placed back into the normal anatomical position. The muscle was rickie pproximated with 0 Vicryl suture in a [id number]-[id number] fashion, the fascia was then reapproximated fro m both ends using 0 Vicryl suture in a continuous fashion. Subcuticular space was then irrigated and closed with a 3-0 plain suture. All bleeders were then cauterized and the skin was then reapproxima rand with 4-0 Monocryl suture in a continuous fashion. Steri-Strips were applied along with dressings . The final sponge, needle and instrument count were found to be correct. EBL 600 mL. Clear urine n oted from the Leach. Dr. Glover was necessary for providing fundal pressure, exposure and assisting and helping with closur e and retraction at surgery. Job ID: [id number]
[2021-08-31] MEDS ORDERED: MEPERIDINE HCL 50 MG/ML CARP IV PRN (05:00)
[2021-08-31] MEDS ORDERED: PROMETHAZINE HCL 25 MG in SODIUM CHLORIDE 0.9% 50 ML IV PRN (05:00)
[2021-08-31] MEDS ORDERED: diphenhydrAMINE Capsule 25 MG CAP PO PRN (05:00)
[2021-08-31] MEDS ORDERED: diphenhydrAMINE 50 MG/ML VIAL IV PRN (05:00)
[2021-08-31] MEDS ORDERED: oxyCODONE/ACETAMINOPHEN 5mg/325mg TAB PO PRN (05:00)
[2021-08-31] MEDS ORDERED: ONDANSETRON INJ 2 MG/ML 2 ML VIAL IV PRN (05:00)
[2021-08-31] MEDS ORDERED: KETOROLAC 30 MG/ML VIAL IV PRN (05:00)
[2021-08-31] MEDS ORDERED: PRENATAL VITAMIN 1 TAB PO SCH (08:00)
[2021-08-31] MEDS: FERROUS SULFATE 325 MG TAB PO SCH (08:13)
[2021-08-31] MEDS: DOCUSATE SODIUM 100 MG CAP PO SCH ×2 (08:13→20:56)
[2021-08-31 08:25] LABS: Hematocrit (blood only) 30.4 % (37-47); Mean Corpuscular Hemoglobin 29.2 pg (25-34); Mean Corpuscular Hgb Conc 32.9 g/dL (32-36); Mean Corpuscular Volume 88.6 fL (80-100); Mean Platelet Volume 11.7 fL (7.4-10.4); Platelet Count 161 K/uL (130-400); RDW Coefficient of Variation 13.5 % (11.5-14.5); RDW Standard Deviation 44.1 fL (36.4-46.3); Red Blood Count 3.43 M/uL (4.2-5.4); White Blood Count 9.83 K/uL (4.8-10.8)
[2021-08-31 08:35] LABS: Basophils # (auto) 0.01 K/uL (0-0.2); Basophils % (auto) 0.1 %; Eosinophils # (auto) 0.08 K/uL (0-0.5); Eosinophils % (auto) 0.8 %; Immature Granulocytes # (auto) 0.02 K/uL (0.00-0.02); Immature Granulocytes % (auto) 0.2 %; Lymphocytes # (auto) 1.05 K/uL (1.2-3.4); Lymphocytes % (auto) 10.7 %; Monocytes # (auto) 0.83 K/uL (0.11-0.59); Monocytes % (auto) 8.4 %; Neutrophils # (auto) 7.84 K/uL (1.4-6.5); Neutrophils % (auto) 79.8 %
[2021-08-31] MEDS: IBUPROFEN 600 MG TAB PO PRN ×3 (08:41→23:51)
[2021-08-31] MEDS: SIMETHICONE 80 MG CHEW PO SCH ×4 (08:41→20:56)
[2021-08-31] MEDS ORDERED: NON-FORMULARY MEDICATION (Pnv Cmb#95-Ferrous Fumarate-Fa [Prenatal] 28 mg iron- 800 mcg Ta PO SCH (09:00)
--- NOTE | 2021-08-31 09:30 | Obstetrical Progress Note ---
Date of Service August 31, 2021 Assessment & Plan (1) delivery delivered: POD #1 pt doing well continue eric #1 care Subjective Ambulation: ambulating normally Voiding: no voiding problems Passing Gas:: Yes Diet Tolerance:: clear liquids Lochia:: Small Feeding Type:: breast feeding Review of Systems All systems reviewed & are unremarkable except as noted in HPI & below Physical Exam Constitutional WD/WN, vitals as above well developed and well nourished Eyes PERRL, conjunctivae normal, anicteric sclerae ENMT external ear and nose normal, oropharynx normal Neck trachea midline, no thyromegaly Respiratory normal respiratory effort, lungs clear to auscultation Cardiovascular RRR, no murmur, no edema Chest (Breasts) normal inspection/palpation of breasts Gastrointestinal (Abdomen) normal bowel sounds, soft, nontender, no hepatosplenomegaly Musculoskeletal no cyanosis or clubbing, extremities motor strength 5/5 Skin no rashes, warm and dry + incision (Clean,dry and intact) Neurologic patellar DTR's 2+ bilat, sensation intact Psychiatric A+Ox3, euthymic affect Genitourinary normal external appearance Lymphatic no cervical or axillary lymphadenopathy Results & Data ([facility]) Vital Signs (Past 12 Hours) Vital Signs Temp Pulse Pulse Resp BP Pulse Ox 08/31/21 07:40 36.9 C 74 16 95/58 L 94 08/31/21 05:00 37 C 76 16 112/71 99 08/31/21 04:40 16 99 08/31/21 03:00 14 97 08/31/21 00:46 16 99 08/31/21 00:15 16 98 08/30/21 23:14 36.6 C 80 16 120/80 97 08/30/21 22:50 16 100 08/30/21 22:27 16 98 08/30/21 21:30 16 98
[2021-08-31] MEDS ORDERED: bisacodyL 5 MG TABEC PO SCH (20:00)
--- NOTE | 2021-09-01 07:18 | Obstetrical Progress Note ---
Date of Service September 01, 2021 Assessment & Plan (1) delivery delivered: POD2 D/c home today Continue routine PP care Subjective Ambulation: ambulating normally Voiding: no voiding problems Passing Gas:: Yes Diet Tolerance:: regular diet Lochia:: Small Feeding Type:: breast feeding (and bottle) Doing well, wants to go home today Constitutional: + as per Subjective / HPI Physical Exam Constitutional WD/WN, vitals as above Respiratory normal respiratory effort, lungs clear to auscultation Cardiovascular RRR, no murmur, no edema Gastrointestinal (Abdomen) normal bowel sounds, soft, nontender, no hepatosplenomegaly incision clean dry intact Results & Data ([facility]) Vital Signs (Past 12 Hours) Vital Signs Temp Pulse Resp BP Pulse Ox 08/31/21 23:00 36.4 C L 71 16 107/75 97 08/31/21 20:45 36.6 C 75 16 115/77 97
[2021-09-01 08:04] LABS: Hemoglobin 10.3 g/dL (12.0-16.0)
[2021-09-01] MEDS: IBUPROFEN 600 MG TAB PO PRN (08:46)
[2021-09-01] MEDS: FERROUS SULFATE 325 MG TAB PO SCH (08:47)
[2021-09-01] MEDS: SIMETHICONE 80 MG CHEW PO SCH (08:48)
[2021-09-01] MEDS ORDERED: bisacodyL 10 MG SUPP PR PRN (13:17)
--- NOTE | 2021-09-02 09:56 | Discharge Summary (DS) ---
DATE OF ADMISSION: 08/29/2021 DATE OF DISCHARGE: 09/01/2021 REASON FOR ADMISSION AND HOSPITAL COURSE: The patient is a 31-year-old female, para 2-0-1-2, admitte d at 38 weeks and 3 days for repeat section. The patient was given informed consent prior t o the start of the procedure and antibiotics were given as well as a timeout. The patient had a twin gestation at term. Both babies were breech. Twin A was a live male, Apgars were 9 and 9, yumiko sherry ch. Twin B was a live male, Apgars 8 and 8, yumiko breech with a nuchal cord x1. Hospital course unc omplicated. The patient was discharged home on the second postoperative day in stable condition. Reg ular diet on discharge. Medications include Percocet and Motrin. Follow up will be in 1 week for in cision check. Job ID: [id number]
== END 2021-09-01 10:15 | disposition home or self-care (01) | DRG 786 ==
LOC: OPB 16:31 → 4S1 16:32 → 4W 20:47 → 3N 08-30 10:43
DX: O98.52 Other viral diseases complicating childbirth; O30.043 Twin pregnancy, dichorionic/diamniotic, third trimester; O32.1XX1 Maternal care for breech presentation, fetus 1; Z37.2 Twins, both liveborn; Z3A.38 38 weeks gestation of pregnancy; O34.211 Maternal care for low transverse scar from previous cesarean delivery; O69.81X2 Labor and delivery complicated by cord around neck, without compression, fetus 2; U07.1 COVID-19; O32.1XX2 Maternal care for breech presentation, fetus 2; O76 Abnormality in fetal heart rate and rhythm complicating labor and delivery